=== PATIENT | male | born 1990 | race Caucasian/White ===

== ENCOUNTER 2017-05-21 07:38 | Emergency (ER) | payer BC ==
[2017-05-21 07:45] VITALS: PULSE 76; RESP 16; TEMP 98.2
--- NOTE | 2017-05-21 07:46 | EDPHY ---
H & P Stated Complaint: n/v/fever Time Seen by Provider: 05/21/17 07:46 - Personal History Current Tetanus/Diphtheria Vaccine: Yes Current Tetanus Diphtheria and Acellular Pertussis (TDAP): Yes - Medical/Surgical History Hx Asthma: Yes Hx Chronic Respiratory Disease: No Hx Diabetes: No Hx Cardiac Disease: No Hx Renal Disease: No Hx Cirrhosis: No Hx Alcoholism: No Hx HIV/AIDS: No Hx Splenectomy or Spleen Trauma: No Other PMH: asthma, - Social History Smoking Status: Never smoked Constitutional: Initial Vital Signs Temperature (C) 36.8 C 05/21/17 07:42 Heart Rate 76 05/21/17 07:42 Respiratory Rate 16 05/21/17 07:42 Blood Pressure 130/58 H 05/21/17 07:42 O2 Sat (%) 96 05/21/17 07:42 O2 Delivery Mode Room Air O2 (L/minute) 2 Allergies/Adverse Reactions: No Known Allergies Allergy (Unverified 05/21/17 07:41) Home Medications: Medication Instructions Recorded Fish Oil 1,000 mg Capsule 05/21/17 Probiotic 05/21/17 Medical Decision Making ED Course/Re-evaluation: CHIEF COMPLAINT: Nausea, vomiting, headache, chills HISTORY OF PRESENT ILLNESS: The patient is a 26 y/o male complaining of nausea, vomiting, diarrhea, headache , and chills since 01:00, 7 hours ago. He has been vomiting every hour since it began. He ate a hamburger and aliyah pizza last night, but is unsure if this caused him to become sick. Denies abdominal pain, shortness of breath, chest pain, paresthesias, numbness or other pertinent symptoms. REVIEW OF SYSTEMS: A 10 point review of systems was performed and is negative with the exception of the elements mentioned in the history of present illness. PHYSICAL EXAM: HR, BP, O2 Sat, RR. Temp noted General Appearance: Alert, well hydrated, appropriate, and non-toxic appearing. Head: Atraumatic without scalp tenderness or obvious injury Eyes: Pupils equal, round, reactive to light and accommodation, EOMI, no trauma , no injection. Ears: Clear bilaterally, no perforation, normal landmarks Nose: Atraumatic, no rhinorrhea, clear. Throat: Mucus membranes dry. Neck: Supple, nontender, no lymphadenopathy. Respiratory: No retractions, no distress, no wheezes, and no accessory muscle use. Lungs are clear to auscultation bilaterally. Cardiovascular: Regular rate and rhythm, no murmurs, rubs, or gallops. Good capillary refill all extremities. Gastrointestinal: Abdomen is soft, nontender, non-distended, no masses, no rebound, no guarding, no peritoneal signs. Musculoskeletal: Normal active ROM of all extremities, atraumatic. Neurological: Alert, appropriate, and interactive. Nonfocal neuro. Skin: No rashes, good turgor, no nodules on palpation. Past medical history: Asthma Past surgical history: Denies Family history: Denies Social history: Lives in [place], nonsmoker DIFFERENTIAL DIAGNOSIS: The differential diagnosis for the patient's fever included but was not limited to pneumonia, urinary tract infection, viral syndrome, bacterial syndrome, meningitis, and sepsis. MEDICAL DECISION MAKING: The patient is a 26 y/o male presenting with nausea, vomiting, diarrhea and chills for 7 hours. Denies abdominal tenderness. IV established. Labs drawn. 2 L IV NS administered. The patient received 4mg IV Zofran, 4mg IV Morphine, 30mg IV Toradol. 0900: Patient is feeling better with IV fluid rehydration and Zofran; he will be placed on PO trial. 0915: Patient passed PO trial. Patient's vomiting and diarrhea likely secondary to infectious gastritis. Laboratory studies are unremarkable. He had serial examinations in the ED over a two-hour period. He will be discharged home with a prescription for Zofran; patient is comfortable with this plan. - Data Points Medications Given: Discontinued Medications Sodium Chloride (Ns) 1,000 mls @ 0 mls/hr IV EDNOW ONE; Wide Open PRN Reason: Protocol Stop: 05/21/17 07:54 Last Admin: 05/21/17 08:16 Dose: 1,000 mls Sodium Chloride (Ns) 1,000 mls @ 0 mls/hr IV EDNOW ONE; Wide Open PRN Reason: Protocol Stop: 05/21/17 07:54 Last Admin: 05/21/17 08:16 Dose: 1,000 mls Ketorolac Tromethamine (Toradol) 30 mg IVP EDNOW ONE Stop: 05/21/17 07:54 Last Admin: 05/21/17 08:15 Dose: 30 mg Morphine Sulfate (Morphine) 4 mg IVP EDNOW ONE Stop: 05/21/17 07:54 Last Admin: 05/21/17 08:16 Dose: 4 mg Ondansetron HCl (Zofran) 4 mg IVP EDNOW ONE Stop: 05/21/17 07:54 Last Admin: 05/21/17 08:15 Dose: 4 mg Departure - Departure Disposition: Home, Routine, Self-Care Clinical Impression: Gastroenteritis Nausea and vomiting Qualifiers: Vomiting type: unspecified Vomiting Intractability: unspecified Qualified Code( s): R11.2 - Nausea with vomiting, unspecified Condition: Good Instructions: Gastroenteritis (ED), Acute Nausea and Vomiting (ED) Additional Instructions: 1. Increase fluid intake. 2. Take 4mg oral Zofran as needed for nausea. 3. Follow-up with your primary doctor within 72 hours. 4. Return to the Emergency Department for fever, chest pain, shortness of breath , increasing pain, or other worsening of condition. Referrals: [facility],. [Clinic] - As per Instructions Adilson Fernandez MD [Medical Doctor] - As per Instructions Report Scribed for: Wan Davis Report Scribed by: Leah Rouse Date of Report: 05/21/17 Time of Report: 07:46
[2017-05-21] MEDS ORDERED: KETOROLAC 30 MG/1 ML SDV IVP ONE (07:53)
[2017-05-21] MEDS ORDERED: ONDANSETRON 4 MG/2 ML VIAL IVP ONE (07:53)
[2017-05-21] MEDS ORDERED: NS 1,000 ML IV ONE ×2 (07:53)
[2017-05-21] MEDS ORDERED: ONDANSETRON 4MG PREPACK#2 BTL TAKEHOME ONE (09:13)
[2017-05-21 09:35] VITALS: BP 130/57; O2SAT 96
== END 2017-05-21 09:35 | disposition home or self-care (01) ==
DX: K52.9 Noninfective gastroenteritis and colitis, unspecified (principal); J45.909 Unspecified asthma, uncomplicated; E86.9 Volume depletion, unspecified
CPT/HCPCS: 96374; J1885; J2405

== ENCOUNTER 2018-06-12 09:47 | Emergency (ER) | payer BC, OTHER ==
[2018-06-12] MEDS ORDERED: NS 500 ML IV ONE (10:14)
[2018-06-12 10:26] LABS: PLATELET COUNT 213 10^3/uL (150-400)
--- NOTE | 2018-06-12 11:06 | EDPHY ---
H & P Time Seen by Provider: 06/12/18 10:13 HPI/ROS: HPI Near fainting. 27-year-old male by private vehicle with his girlfriend. 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 He reports that he had a dental procedure yesterday. This involved placing a large filling. He was prescribed an antibiotic, high-dose ibuprofen and Percocet for pain medication. He reports that when he woke up this morning he felt mildly lightheaded and fatigued. He had taken some Percocet the night before. He is naive to narcotic pain medications. He ate some oatmeal this morning and felt better. However by the time he got to work he felt lightheaded, mildly nauseous and was sweaty. He sat down at his desk. He reports that he leaned over and thinks he may have lost consciousness while sitting at his desk for a brief moment. His coworkers noticed that he did not look well. They called his girlfriend who came and picked him up and brought him to the emergency department. He states that he feels fine at this time. He denies any associated headache, no chest pain, no shortness of breath, no loss of sensation or weakness in his extremities. He denies any associated palpitations. He has had episodes similar to this in the past associated with a painful stimulus. ROS: Constitutional: No fever, no chills. As above. Eyes: No discharge. No changes in vision. ENT: No sore throat. No nasal congestion or rhinorrhea. Respiratory: No cough. No shortness of breath. Cardiac: No chest pain, no palpitations. Gastrointestinal: No abdominal pain, no vomiting, no diarrhea. Genitourinary: No hematuria. No dysuria or increased frequency with urination. Musculoskeletal: No back pain. No neck pain. No myalgias or arthralgias. Skin: No rashes. Neurological: No headache. No focal weakness or altered sensation. Past medical history: Asthma. He otherwise denies any significant past medical history. As above. 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 Here with his girlfriend. Nonsmoker. No alcohol. Physical Exam: General Appearance: Alert, no distress. He is a young, thin and very fit looking male. This patient is responding to questions appropriately and in full sentences. This patient appears well-hydrated and well-nourished. Eyes: Pupils equal and round no pallor or injection. No lid edema, erythema or injection. Respiratory: There are no retractions, lungs are clear to auscultation with good air movement bilaterally. Cardiovascular: Regular rate and rhythm. Bradycardia. No murmur. Gastrointestinal: Abdomen is soft and nontender, no masses, bowel sounds normal. No focal tenderness at McBurney's point. No Yousif sign. Neurological: Motor sensory function is grossly intact. Cranial nerves are normal. Gait is normal. Skin: Warm and dry, no rashes. Musculoskeletal: Neck is supple and nontender. Extremities are symmetrical. All joints range without pain or impingement. Psychiatric: No agitation. No depression. Database: EKG: EKG time is 10:03 a.m.; EKG shows a narrow complex normal sinus rhythm with a ventricular rate of 44. Left ventricular hypertrophy is noted with likely early repolarization pattern. The FL, QRS, QT intervals are within normal limits. There are no ST-T wave changes indicative of ischemic or injury pattern. No evidence of right heart strain. No evidence of WPW, Brugada syndrome, hyper trophic cardiomyopathy. Interpreted by me. Imaging: Procedures: Emergency department course: Triage vital signs reviewed. Bradycardia. Otherwise vital signs are normal. IV was placed. He will be given 500 cc of IV normal saline as a bolus. EKG obtained and reviewed by myself. CBC and electrolytes will be checked. 11:05 a.m., the patient was re-evaluated, resting comfortably at this time. He has remained asymptomatic. Vital signs reviewed and are unremarkable. 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 No other red flags on his workup. His near syncope versus syncope was likely the affects of his narcotic pain medication which she took this morning as well as not eating much for breakfast. He has had a hard time eating because of his dental pain. He has been up and ambulatory around the emergency department. He has been asymptomatic. He does feel comfortable going home at this time and I feel this is reasonable. However, I did discussed with him in detail the results of his EKG. He is not to exercise over the next 5 days. I explained to him that I wanted him to get an echocardiogram through [facility]. I have ordered a cardiology consult. He and his girlfriend will call their offices for appointment time after discharge today. He feels comfortable going home. Return to emergency department precautions have been discussed with him in detail. I explained it was very important for him to keep hydrated and well nourished. I discussed protein supplement drinks as an added source of calories. He understands his follow- up. All of his questions were answered. He was discharged from the emergency department in good condition with his girlfriend. Differential Diagnosis: The differential diagnosis on this patient includes but is not limited to vasovagal syncope, hypoglycemia, dehydration, medication reaction. Subarachnoid hemorrhage, arrhythmia, acute coronary syndrome, CVA, pulmonary embolism unlikely. This represents a partial list of diagnoses considered. These considerations are based on history, physical exam, past history, reassessment and diagnostic testing. Smoking Status: Never smoked Constitutional: Initial Vital Signs Temperature (C) 36.6 C 06/12/18 09:50 Heart Rate 45 L 06/12/18 09:50 Respiratory Rate 16 06/12/18 09:50 Blood Pressure 110/75 06/12/18 09:50 O2 Sat (%) 99 06/12/18 09:50 O2 Delivery Mode Room Air Allergies/Adverse Reactions: No Known Allergies Allergy (Unverified 05/21/17 07:41) Home Medications: Medication Instructions Recorded Fish Oil 1,000 mg Capsule 05/21/17 Probiotic 05/21/17 Percocet 10-325 mg Tablet 06/12/18 Medical Decision Making - Data Points Laboratory Results: Laboratory Results 06/12/18 10:10 06/12/18 10:10 06/12/18 06/12/18 10:10 10:10 WBC 6.42 10^3/uL 10^3/uL (3.80-9.50) RBC 4.83 10^6/uL 10^6/uL (4.40-6.38) Hgb 14.8 g/dL g/dL (13.7-17.5) Hct 45.3 % % (40.0-51.0) MCV 93.8 fL fL (81.5-99.8) MCH 30.6 pg pg (27.9-34.1) MCHC 32.7 g/dL g/dL (32.4-36.7) RDW 12.4 % % (11.5-15.2) Plt Count 213 10^3/uL 10^3/uL (150-400) MPV 9.9 fL fL (8.7-11.7) Neut % (Auto) 68.5 % % (39.3-74.2) Lymph % (Auto) 21.0 % % (15.0-45.0) [place] % (Auto) 7.8 % % (4.5-13.0) Eos % (Auto) 2.0 % % (0.6-7.6) Baso % (Auto) 0.5 % % (0.3-1.7) Nucleat RBC Rel Count 0.0 % % (0.0-0.2) Absolute Neuts (auto) 4.40 10^3/uL 10^3/uL (1.70-6.50) Absolute Lymphs (auto) 1.35 10^3/uL 10^3/uL (1.00-3.00) Absolute Monos (auto) 0.50 10^3/uL 10^3/uL (0.30-0.80) Absolute Eos (auto) 0.13 10^3/uL 10^3/uL (0.03-0.40) Absolute Basos (auto) 0.03 10^3/uL 10^3/uL (0.02-0.10) Absolute Nucleated RBC 0.00 10^3/uL 10^3/uL (0-0.01) Immature Gran % 0.2 % % (0.0-1.1) Immature Gran # 0.01 10^3/uL 10^3/uL (0.00-0.10) Sodium 134 mEq/L L mEq/L (135-145) Potassium 4.8 mEq/L mEq/L (3.5-5.2) Chloride 103 mEq/L mEq/L (97-110) Carbon Dioxide 27 mEq/l mEq/l (22-31) Anion Gap 4 mEq/L L mEq/L (6-14) BUN 16 mg/dL mg/dL (7-23) Creatinine 0.8 mg/dL mg/dL (0.7-1.3) Estimated GFR > 60 Glucose 97 mg/dL mg/dL (70-100) Calcium 9.4 mg/dL mg/dL (8.5-10.4) Medications Given: Discontinued Medications Sodium Chloride (Ns) 500 mls @ 1,000 mls/hr IV EDNOW ONE PRN Reason: Protocol Stop: 06/12/18 10:43 Last Admin: 06/12/18 10:35 Dose: 500 mls Departure - Departure Disposition: Home, Routine, Self-Care Clinical Impression: Syncope Condition: Good Instructions: Syncope (ED) Additional Instructions: Read and follow provided instructions. Follow-up with [facility], our [facility]ology group, for an echocardiogram as discussed. Call their office this afternoon for appointment time. I would like this done within the next 3 days. Explain this is for an emergency department follow-up secondary to your fainting episode. Take your medication as prescribed. Narcotic pain medication: 1-2 every 4-6 hours as needed for pain. Do not drive while taking this medication. Ibuprofen dosin mg every 6 hours with meals for the next 3 days only. Take only as needed for pain. Keep yourself well hydrated and well nourished as discussed. It is very important that you maintain a high calorie intake. No strenuous physical activity until after your echocardiogram has been interpreted and he has been cleared by the cardiology group. Return to the emergency department for worsening symptoms, lightheadedness, fainting, chest pain, palpitations or other serious concerns. Referrals: [facility] [Provider Group] - As per Instructions
[2018-06-12 11:30] VITALS: BP 128/79
--- NOTE | 2018-06-13 23:23 | CPEKG ---
Test Reason : OPEN Blood Pressure : / mmHG Vent. Rate : 044 BPM Atrial Rate : 043 BPM P-R Int : 214 ms QRS Dur : 096 ms QT Int : 478 ms P-R-T Axes : 050 085 059 degrees QTc Int : 409 ms Sinus bradycardia Probable left ventricular hypertrophy Nonspecific T abnrm, anterolateral leads ST elev, probable normal early repol pattern Confirmed by Claudette Barger ([id number]) on 06/13/2018 11:22:44 PM Referred By: PHYSICIAN ED Confirmed By:Claudette Barger
== END 2018-06-12 11:30 | disposition home or self-care (01) ==
DX: R55 Syncope and collapse (principal); E86.9 Volume depletion, unspecified; Z79.899 Other long term (current) drug therapy